=== PATIENT | female | born 1955 | race Caucasian/White ===

== ENCOUNTER 2018-12-09 13:56 | Emergency (ER) ==
[2018-12-09 14:13] VITALS: BP 147/77; TEMP 98.5; BMI 26.2
--- NOTE | 2018-12-09 16:36 | CT ---
EXAM: CT cervical spine. HISTORY: Fall. TECHNIQUE: CT cervical spine without contrast. Detailed axial sections. Coronal and sagittal re-fo rmations. COMPARISON: None FINDINGS: Bones appear demineralized. There is no acute fracture or subluxation. Vertebral body heights are m aintained. Facet joints are covered. Lateral masses of C1 and C2 are normally aligned and the odon toid process is intact. Diffuse degenerative disc and facet disease is noted leading to multilevel a t least mild central canal and neural foraminal narrowing. A few tiny nodules in the thyroid gland i ncidentally noted. IMPRESSION: 1. No acute fracture or subluxation. 2. Small thyroid nodules.
--- NOTE | 2018-12-09 16:53 | DI ---
EXAM: Left hand three-view HISTORY: Fall COMPARISON: None FINDINGS: No acute fracture or dislocation. Mild to moderate scattered osteophytic change throughou t the hand. Remodeling changes distal radius, likely due to old healed fracture. Old ununited ulnar styloid avulsion fracture. IMPERSSION: 1. No acute fracture or dislocation. 2. Osteoarthritis. 3. Remodeling changes distal radius, likely due to old healed fracture. Old ununited ulnar styloid avulsion fracture.
--- NOTE | 2018-12-09 16:54 | DI ---
EXAM: Right knee four views HISTORY: Fall COMPARISON: None FINDINGS: No fracture or dislocation. Small medial and lateral osteophytes. Mild narrowing medial and patellofemoral compartment. No joint effusion. Calcification in the region of the medial collat eral ligament may be due to old trauma or soft tissue injury. Vascular clips. Mild quadriceps tendo n enthesopathy. Subcutaneous edema. IMPERSSION: 1. No fracture or dislocation. 2. Mild osteoarthritis. 3. Subcutaneous edema
--- NOTE | 2018-12-09 16:54 | DI ---
EXAM: Left knee four views HISTORY: Fall COMPARISON: None FINDINGS: No fracture or dislocation. Mild narrowing medial compartment. Small tricompartmental os teophytes. No joint effusion. Vascular clips. Subcutaneous edema. IMPERSSION: 1. No fracture or dislocation. 2. Mild osteoarthritis. 3. Subcutaneous edema
--- NOTE | 2018-12-09 16:55 | DI ---
EXAM: Left wrist three-view HISTORY: Fall COMPARISON: None FINDINGS: Acute fracture or dislocation identified. Smoothly marginated remodeling changes of the d istal radius, most consistent with old healed fracture. No acute fracture line identified. Remote a vulsion fracture of the ulnar styloid. Mild to moderate scattered osteoarthritis. IMPERSSION: 1. No acute fracture or dislocation. 2. Remote fractures of the distal radius and ulnar styloid.
--- NOTE | 2018-12-09 16:57 | DI ---
EXAM: LEFT ELBOW HISTORY: Fall, elbow pain FINDINGS: Left elbow three-view. Bone and joint structures appear normal. There is no joint disloc ation or effusion. No fracture is identified. Bone density and soft tissues are within normal limit s. IMPRESSION: No convincing radiographic evidence of fracture. If symptoms persist, consider correlati on with CT.
--- NOTE | 2018-12-09 17:28 | ED.PDOC ---
General ED Provider: Dr. RICHARD JIMÉNEZ Chief Complaint: Fall Stated Complaint: ground level fall c/o bilateral knees and hand and right elbow pain Time Seen by Physician: 14:00 Mode of Arrival: Wheelchair Information Source: Patient Exam Limitations: No limitations Primary Care Provider: ESA LOVE MD Nursing and Triage Documentation Reviewed and Agree: Yes Does patient meet sepsis criteria?: No System Inflammatory Response Syndrome: Not Applicable Sepsis Protocol: For patient's 13 years and over: Temp is 96.8 and below OR 101 and greater Pulse >90 BPM Resp >20/minute Acutely Altered Mental Status Are patient's symptoms suggestive of a new infection, such as: -Pneumonia -Skin, Soft Tissue -Endocarditis -UTI -Bone, Joint Infection -Implantable Device -Acute Abdominal Infection -Wound Infection -Meningitis -Blood Stream Catheter Infection -Unknown Trauma/Injury Complaint Exam - Trauma Complaint/Exam Location of Pain or Injury: Reports: Neck, RUE (hand wrist/ elbow), LUE (hand and wrist) Mechanism of Injury: Reports: Fall Onset/Duration: today Symptoms Are: Still present Timing of Treatment: Immediate Initial Severity: Mild Current Severity: Mild Character: Reports: Aching Aggravating: Reports: None Alleviating: Reports: None Associated Signs and Symptoms: Denies: LOC, Confusion, Memory loss, Lethargy, Vomiting, Bleeding, Bruising, Swelling, Extremity disuse, Painful respiration, Hoarseness, Dysphagia, Hemoptysis, Significant blood loss Penetrating Injury Risk Factors: Reports: None Nexus Low Risk Criteria: No post-midline CS tender, No evidence of intoxicat., No Altered LOC, No focal neuro deficit, No distracting injuries Review of Systems - Review Of Systems Constitutional: Reports: No symptoms Eyes: Reports: No symptoms Ears, Nose, Mouth, Throat: Reports: No symptoms Respiratory: Reports: No symptoms Cardiac: Reports: No symptoms GI: Reports: No symptoms : Reports: No symptoms Musculoskeletal: Reports: Joint pain (hand, wrist, knees ), Neck pain Skin: Reports: No symptoms Neurological: Reports: No symptoms Endocrine: Reports: No symptoms Hematologic/Lymphatic: Reports: No symptoms All Other Systems: Reviewed and Negative Past Medical History - Past Medical History Previously Healthy: Yes Endocrine: Reports: None Cardiovascular: Reports: None Respiratory: Reports: None Hematological: Reports: None Gastrointestinal: Reports: None Genitourinary: Reports: None Neuro/Psych: Reports: None Musculoskeletal: Reports: None Cancer: Reports: None Last Menstrual Period: N/A - Surgical History General Surgical History: Reports: None - Family History Family History: Reports: None - Social History Smoking Status: Never smoker Hx Substance Use: No Alcohol Screening: None - Immunizations Tetanus Shot up to Date: No Physical Exam - Physical Exam Appearance: Well-appearing, No pain distress, Well-nourished Eyes: JIMMIE, EOMI, Conjunctiva clear ENT: Ears normal, Nose normal, Oropharynx normal Respiratory: Airway patent, Breath sounds clear, Breath sounds equal, Respirations nonlabored Cardiovascular: RRR, Pulses normal, No rub, No murmur GI/: Soft, Nontender, No masses, Bowel sounds normal, No Organomegaly Musculoskeletal: Normal strength, ROM intact, No edema, No calf tenderness Skin: Warm, Dry, Normal color Neurological: Sensation intact, Motor intact, Reflexes intact, Cranial nerves intact, Alert, Oriented Psychiatric: Affect appropriate, Mood appropriate Critical Care Note - Critical Care Note Total Time (mins): 0 Course - Course Orders, Labs, Meds: Orders Category Date Time Status CT CERVICAL SPINE W/O CONTRAST Stat RADS 12/09/18 15:24 Completed ELBOW, LEFT MIN 3 VIEWS Stat RADS 12/09/18 15:25 Completed HAND, LEFT 2 VIEWS Stat RADS 12/09/18 15:24 Completed KNEE, LEFT 4 VIEWS Stat RADS 12/09/18 15:25 Completed KNEE, RIGHT 4 VIEWS Stat RADS 12/09/18 15:25 Completed WRIST, LEFT 3 VIEWS Stat RADS 12/09/18 15:24 Completed Vital Signs: Temp Pulse Resp BP Pulse Ox 12/09/18 13:58 98.5 F 86 20 147/77 H 95 Departure - Departure Time of Disposition: 17:28 (family concered that pt lives alone and can not use her arms . they wanted pt to be transfered to rehab. i spoke to the office of PMD they stated they would see her on thursday. ) Disposition: HOME SELF-CARE Discharge Problem: Pain in both upper arms Acute knee pain Qualifiers: Laterality: bilateral Qualified Code(s): M25.561 - Pain in right knee; M25.562 - Pain in left knee Instructions: Knee Pain (ED), Arthralgia (ED) Condition: Good Pt referred to PMD for follow-up: Yes IPMP verified?: No Additional Instructions: Please call your Family Physician as soon as possible to schedule a follow-up appointment.
== END 2018-12-09 17:44 | disposition home or self-care (01) ==
LOC: ED 13:56
DX: M25.562 Pain in left knee (principal); M25.561 Pain in right knee; M54.2 Cervicalgia; M25.522 Pain in left elbow; M25.532 Pain in left wrist; M79.642 Pain in left hand; W19.XXXA Unspecified fall, initial encounter
CPT/HCPCS: 99283

== ENCOUNTER 2019-02-10 09:40 | Outpatient (RCR) | payer OTHER ==
[2019-02-09 10:06] VITALS: BMI 25.7
[2019-02-23 10:54] VITALS: BP 140/64
== END 2019-03-12 23:59 ==
LOC: CAR.REHAB 09:40
PROVIDERS: ATTEND Clinical Nurse Specialist
DX: I25.10 Atherosclerotic heart disease of native coronary artery without angina pectoris (principal); Z95.5 Presence of coronary angioplasty implant and graft
CPT/HCPCS: 93798

== ENCOUNTER 2019-03-08 14:09 | Outpatient (CLI) ==
[2019-02-09 10:06] VITALS: BMI 25.7
--- NOTE | 2019-03-08 15:25 | CT ---
EXAM: CT of the head without contrast History: Memory loss. Head trauma. Technique: Multiplanar CT images through the head were obtained without the administration of IV con trast Findings: The visualized paranasal sinuses and mastoid air cells are clear in general. No acute don varial abnormalities. Intracranially the ventricular and cisternal spaces are normal in size, shape and configuration for a patient of this age. No dominant mass or midline shift. No hydrocephalous. No acute intracranial hemorrhage or abnormal extraaxial fluid collections. Impression: No acute intracranial process.
== END 2019-03-08 14:10 | disposition home or self-care (01) ==
LOC: RAD 14:09
PROVIDERS: ATTEND Specialist
DX: R41.3 Other amnesia (principal)
CPT/HCPCS: 36415; 82607; 82746; 84443

== ENCOUNTER 2019-03-11 10:00 | Outpatient (RCR) | payer OTHER ==
[2019-02-09 10:06] VITALS: BMI 25.7
== END 2019-03-12 23:59 ==
LOC: NEWBEG 10:00
PROVIDERS: ATTEND Psychiatry & Neurology Psychiatry
DX: F43.10 Post-traumatic stress disorder, unspecified (principal); F41.9 Anxiety disorder, unspecified
CPT/HCPCS: 90853; 99213